=== PATIENT | female | born 1995 | race African-American/Black ===

== ENCOUNTER 2018-10-15 19:43 | Emergency (ER) | payer BC ==
[~2018-10-15] VITALS: Ht 167.6 cm; Wt 59.0 kg
[2018-10-15] MEDS ORDERED: SODIUM CHLORIDE 0.9% 1,000 ML IV ONE (21:01)
[2018-10-15 21:22] LABS: BASOPHILS % 0.4 % (0.0-2.0); EOSINOPHILS % 0.2 % (0.0-5.0); HEMATOCRIT. 35.9 % (36.0-48.0); HEMOGLOBIN. 11.5 g/dL (12.0-16.0); LYMPHOCYTES % 10.3 % (20.0-50.0); MEAN CORPUSCULAR HEMOGLOBIN 26.2 pg (28.0-32.0); MEAN CORPUSCULAR VOLUME 82.3 fL (81.0-99.0); MEAN PLATELET VOLUME 9.9 fl (7.4-10.4); MONOCYTES % 4.9 % (2.0-8.0); NEUTROPHILS % 84.2 % (40.0-76.0); PLATELET 243 x1000/uL (130-400); RED BLOOD CELL COUNT 4.37 mill/uL (4.2-5.4); RED CELL DISTRIBUTION WIDTH 14.4 % (11.6-14.6)
[2018-10-15 21:25] LABS: CHLORIDE 109 mEq/L (98-107)
[2018-10-15 21:28] LABS: HCG SCREEN NEGATIVE
[2018-10-15] MEDS ORDERED: DEXTROSE 50% WATER 50ML SYRINGE IV ONE (21:30)
[2018-10-15 23:33] LABS: CLARITY URINE CLEAR (CLEAR); COLOR URINE YELLOW (YELLOW); KETONES URINE NEGATIVE (NEGATIVE); LEUKOCYTE ESTERASE URINE NEGATIVE (NEGATIVE); NITRITE URINE NEGATIVE (NEGATIVE); OCCULT BLOOD URINE NEGATIVE (NEGATIVE); PH URINE 6.5 (4.5-8.0); PROTEIN URINE NEGATIVE (NEGATIVE); SPECIFIC GRAVITY URINE 1.016 (1.005-1.030)
[2018-10-16 00:20] VITALS: BP 106/60
== END 2018-10-16 00:25 | disposition home or self-care (01) ==
LOC: ER 19:43
DX: E16.2 Hypoglycemia, unspecified (principal); R55 Syncope and collapse; D72.829 Elevated white blood cell count, unspecified
CPT/HCPCS: 36415; 80053; 81003; 82962; 84703; 85025; 93005; 96374; 99284; J7030; Z7610

== ENCOUNTER 2022-05-03 07:07 | Emergency (ER) | payer BC ==
[~2022-05-03] VITALS: Ht 170.2 cm; Wt 52.0 kg
[2022-05-03 07:35] VITALS: BP 98/66
[2022-05-03] MEDS ORDERED: ONDANSETRON HCL 4MG TABLET PO ONE (08:00)
[2022-05-03] MEDS ORDERED: ACETAMINOPHEN 325MG TABLET PO ONE (08:00)
[2022-05-03 08:56] LABS: BASOPHILS % 0.8 % (0.0-2.0); HEMATOCRIT. 42.3 % (36.0-48.0); HEMOGLOBIN. 13.5 g/dL (12.0-16.0); MEAN CORPUSCULAR HEMOGLOBIN 25.2 pg (28.0-32.0); MEAN CORPUSCULAR VOLUME 79.1 fL (81.0-99.0); MONOCYTES % 8.6 % (2.0-8.0); NEUTROPHILS % 77.6 % (40.0-76.0); PLATELET 289 x1000/uL (130-400); RED BLOOD CELL COUNT 5.35 mill/uL (4.2-5.4); RED CELL DISTRIBUTION WIDTH 14.6 % (11.6-14.6)
[2022-05-03 09:22] LABS: CHLORIDE 101 mEq/L (98-107)
[2022-05-03] MEDS ORDERED: TOPUD PO (09:44)
[2022-05-03 09:57] LABS: HCG SCREEN NEGATIVE
== END 2022-05-03 11:16 | disposition home or self-care (01) ==
LOC: ER 07:07
DX: U07.1 COVID-19 (principal); R10.30 Lower abdominal pain, unspecified; R55 Syncope and collapse
CPT/HCPCS: 36415; 71045; 80053; 83690; 84484; 84703; 85025; 87426; 99284; C9803; Q0162

== ENCOUNTER 2025-02-03 04:16 | Emergency (ER) | payer BC, MEDICAID ==
[~2025-02-03] VITALS: Ht 167.6 cm; Wt 59.0 kg
[~2025-02-03 04:16] MED LIST: TOPUD PO
[2025-02-03 04:18] VITALS: O2SAT 100
[2025-02-03 04:50] LABS: BASOPHILS % 0.4 % (0.0-2.0); EOSINOPHILS % 0.2 % (0.0-5.0); HEMATOCRIT. 36.4 % (36.0-48.0); HEMOGLOBIN. 11.4 g/dL (12.0-16.0); LYMPHOCYTES % 14.6 % (20.0-50.0); MEAN PLATELET VOLUME 9.5 fl (7.4-10.4); MONOCYTES % 4.8 % (2.0-8.0); NEUTROPHILS % 80.0 % (40.0-76.0); PLATELET 303 x1000/uL (130-400); RED BLOOD CELL COUNT 4.65 mill/uL (4.2-5.4); RED CELL DISTRIBUTION WIDTH 14.8 % (11.6-14.6)
[2025-02-03 04:53] VITALS: TEMP 36.8
[2025-02-03 05:00] LABS: CREATININE 0.7 mg/dL (0.6-1.0); UREA NITROGEN BLOOD < 5 mg/dL (9-23)
[2025-02-03 05:04] LABS: ETHANOL BLOOD < 10 mg/dL (<10); HCG SCREEN NEGATIVE
[2025-02-03] MEDS: ONDANSETRON HCL 4MG/2ML INJ IV ONE (05:39)
[2025-02-03] MEDS ORDERED: IBUP-1455 PO (06:01)
[2025-02-03] MEDS: IBUPROFEN 600MG TABLET PO ONE (06:04)
[2025-02-03 06:06] VITALS: BP 103/70; PULSE 68; RESP 13; O2SAT 100
== END 2025-02-03 06:18 | disposition home or self-care (01) ==
LOC: ER 04:16
DX: T40.2X1A Poisoning by other opioids, accidental (unintentional), initial encounter (principal); T50.905A Adverse effect of unspecified drugs, medicaments and biological substances, initial encounter; F12.90 Cannabis use, unspecified, uncomplicated; Z79.1 Long term (current) use of non-steroidal anti-inflammatories (NSAID); Y92.89 Other specified places as the place of occurrence of the external cause
CPT/HCPCS: 80048; 80320; 84703; 85025; 36415; 93005; 99284; J2405; G0480